=== PATIENT | female | born 1995 | race Hispanic/Latino ===

== ENCOUNTER 2016-08-21 20:20 | Emergency (ER) | payer OTHER ==
[~2016-08-21] VITALS: Ht 154.9 cm; Wt 52.3 kg
[2016-08-21 20:46] VITALS: BP 127/94; PULSE 88; RESP 16; O2SAT 98
--- NOTE | 2016-08-21 21:41 | ED.REPORT ---
HPI-General Illness Date of Service August 21, 2016 ED Provider: Antony Cunningham MD Patient is a 21 year old female who presents to the ED after begin referred by urgent care complaining of head, neck, and shoulder pain. She had also been experiencing vague intermittent memory problems. She denies numbness, weakness, or any other symptoms. None of her symptoms are new and have persisted for at least 3 months. She was recently worked up my neurology and everything ( including a recent head CT) was normal. She is scheduled for an MRI. She denies fever, chills, neck stiffness, head trauma, focal weakness, or any other symptoms. Symptoms are extremely vague and she states that sometimes she goes to the grocery store and cannot remember what she was going to buy or that she is using her computer and forgets what She was given 2 next. She states that she is already seen her primary care doctor had been worked up for her symptoms. She is not sure which laboratory tests that then done. She has not had any head trauma. History of other medical problems or thyroid disorder. She does not use any alcohol or illicit drugs. She is not currently employed. Nursing Notes Stated Complaint: EYE,HEAD, NECK PAIN, MEMORY PROBLEMS/SENT BY Chief Complaint: General Complaint Nursing Notes Reviewed: Yes Allergies: Coded Allergies: No Known Allergies (Unverified , 08/21/16) General Time Seen by MD: 21:40 Chief Complaint Multip medical complaints Hx Obtained From: Patient Arrived By: Walk-in Recent Healthcare: Recent doctor visit, Recent testing, Prior workup Past Medical History Past Medical History Healthy Past Surgical History Denies Smoking History Never Smoker Social History Alcohol Use: Denies alcohol use Drug Use: Denies drug use Ambulatory Status Independent Review of Systems +subjective memory problems -neck stiffness, head trauma Full Review of Systems Constitutional: Denies: Chills Musculoskeletal: Reports: Joint pain (R shoulder ), Neck pain (With radiation to back of head ) Neurologic: Denies: Weakness Complete sys rev & neg: except as marked. Physical Exam Vital Signs Vital Signs Date Time Temp Pulse Resp B/P Pulse Ox O2 Delivery O2 Flow Rate FiO2 08/21/16 20:46 36.5 88 16 127/94 98 Room Air Initial VS: Reviewed Head / Eyes: Atraumatic, Normocephalic Skin: Warm, Dry Psychiatric: Mood/affect normal, Behavior normal, Normal thought content General/Constitutional: Awake, Alert, Well developed Behavior: Positive: Anxious Head / Eyes: Normocephalic, PERRL, EOMI pupils 3 mm Neck: Supple, Full range of motion Respiratory / Chest: Atraumatic, Breath sounds NL, Breath sounds = bilat, No respiratory distress Cardiovascular: Heart rate NL, Regular rhythm, Heart sounds NL, No gallop, No murmurs, No rubs Abdomen: Atraumatic, Soft, Non-tender, No distention Neurologic: Oriented X3, Speech NL, CN II - XII intact, Gait NL No pronator drift. Negative ronberg Re-Eval/Medical Decision Med Decision/Clinical Course Patient presents to the emergency department from urgent care with multiple vague symptoms including occasional cramping of her right neck and shoulder as well as a vague memory problems, occasional tingling in her bilateral fingertips and a very high level of anxiety. She is only been extensively worked up for these symptoms including neuro imaging and evaluation by neurology. The symptoms were previously attributed to anxiety. She continues to have these symptoms and is not taking any medications. I am not quite sure why she was sent here from urgent care. She has no meningismus, fevers and negative Kernig/Brudzinski. Her presentation examinations completely incompatible with acute meningitis. None of her presentation is suggestive of seizure disorder nor has she exhibited any seizure-like activity here in the emergency room. Neurologic examination is completely nonfocal and I do not see any difficulty with memory based upon my examination here at this time. She clearly does have a very high level of anxiety which is notable in my discussion with her here in the emergency room. Her description of occasional tingling in her fingertips seems to me suggestive that she is occasionally hyperventilating. At this time none of her presentation is strokelike in nature and I do not feel that she requires neuro imaging, lumbar puncture further immediate workup at this time. She is already followed up with her primary care physician and neurologist and I feel that outpatient management for her chronic ongoing symptoms is appropriate. From a psychiatric perspective she is stable. I feel that she is appropriate for discharge home. I had a long conversation with the patient explaining my thought process and she seems to now be more calm and in agreement with this plan. test negative. Prior to discharge follow-up and return precautions were reviewed in detail with the patient who verbalized understanding and agreement with the plan. The patient was discharged in stable condition. Time of Eval: 22:01 Re-Evaluation/Progress Note: Discussed plan for discharge. Patient understands and agrees with plan. All questions addressed at this time. Counseled Regarding: Diagnosis, Need for follow-up, When/why to return to ED Discharge & Departure Primary Impression: Anxiety Additional Impressions: Pins and needles sensation Forgetfulness Muscle cramps Disposition: Home Discharge Condition All VS Reviewed: Yes Condition: Stable Additional Instructions: Thank you for seeking care at the emergency room. It is difficult for us to make definitive diagnoses in the ED but we believe that you are experiencing anxiety. Our primary goal today in the ED was to evaluate you for any life-threatening conditions. Your evaluation was reassuring. You should follow-up with your primary doctor in the next week. Schedule a follow up appointment with neurology and call them to discuss scheduling your MRI. You should return to the ED immediately if you develop weakness, headache, nausea, vomiting, fever, chills or any other concerning signs or symptoms. Thank you for letting us partake in your care today. Referrals: Melva Lyman MD (PCP) Scribe Attestation Portions of this note were transcribed by Jemima Chen. I, Dr. Cunningham personally performed the history, physical exam and medical decision-making; I reviewed and confirmed the accuracy of the information in the transcribed note. Signed by: Jemima Chen 08/21/2016, [id number] copies to: Melva Lyman MD, Beck O MD August 21, 2016 21:41 JEMIMA CHEN August 21, 2016 22:01
[2016-08-21 22:27] VITALS: BP 125/90; PULSE 84; RESP 16; O2SAT 99
== END 2016-08-21 22:55 | disposition home or self-care (01) ==
LOC: SED 20:20
DX: F41.9 Anxiety disorder, unspecified (principal); R20.2 Paresthesia of skin; R25.2 Cramp and spasm; R41.3 Other amnesia